=== PATIENT | female | born 1990 | race African-American/Black ===

== ENCOUNTER 2021-09-10 10:40 | Emergency (ER) | payer MEDICAID ==
[~2021-09-10] VITALS: Ht 162.6 cm; Wt 50.0 kg
[2021-09-10] MEDS ORDERED: ONDANSETRON HCL 4MG/2ML INJ IV STA (11:27)
[2021-09-10] MEDS ORDERED: KETOROLAC 30MG/ML VIAL IV STA (11:27)
[2021-09-10] MEDS ORDERED: FAMOTIDINE 20MG/2ML VIAL IV STA (11:27)
[2021-09-10] MEDS ORDERED: SODIUM CHLORIDE 0.9% 1,000 ML IV ONE (11:30)
[2021-09-10 12:07] LABS: CLARITY URINE CLEAR (CLEAR); COLOR URINE YELLOW (YELLOW); KETONES URINE TRACE (NEGATIVE); LEUKOCYTE ESTERASE URINE TRACE (NEGATIVE); NITRITE URINE NEGATIVE (NEGATIVE); OCCULT BLOOD URINE TRACE (NEGATIVE); PROTEIN URINE NEGATIVE (NEGATIVE); SPECIFIC GRAVITY URINE 1.023 (1.005-1.030); UROBILINOGEN URINE 0.2 E.U./dL (0.2-1.0)
[2021-09-10 12:22] LABS: BASOPHILS % 0.4 % (0.0-2.0); EOSINOPHILS % 0.1 % (0.0-5.0); HEMATOCRIT. 38.1 % (36.0-48.0); HEMOGLOBIN. 12.7 g/dL (12.0-16.0); LYMPHOCYTES % 28.3 % (20.0-50.0); MEAN CORPUSCULAR HEMOGLOBIN 30.2 pg (28.0-32.0); MEAN CORPUSCULAR VOLUME 90.8 fL (81.0-99.0); MONOCYTES % 3.4 % (2.0-8.0); NEUTROPHILS % 67.8 % (40.0-76.0); PLATELET 193 x1000/uL (130-400); RED CELL DISTRIBUTION WIDTH 15.7 % (11.6-14.6)
[2021-09-10 12:22] LABS: *AMPHETAMINES SCREEN URINE NEGATIVE (NEGATIVE); *BARBITURATES SCREEN URINE NEGATIVE (NEGATIVE)
[2021-09-10 12:23] LABS: *BENZODIAZEPINES SCREEN URINE NEGATIVE (NEGATIVE); *COCAINE SCREEN URINE NEGATIVE (NEGATIVE); CANNABINOID URINE SCREEN NEGATIVE (NEGATIVE); METHADONE URINE SCREEN NEGATIVE (NEGATIVE); PHENCYCLIDINE URINE SCREEN NEGATIVE (NEGATIVE)
[2021-09-10 12:25] LABS: OPIATES URINE SCREEN NEGATIVE (NEGATIVE)
[2021-09-10 12:27] LABS: CHLORIDE 108 mEq/L (98-107)
[2021-09-10 12:31] LABS: ETHANOL BLOOD < 10 mg/dL
[2021-09-10 12:35] LABS: PROTHROMBIN TIME 10.9 sec (9.6-11.0)
[2021-09-10 12:42] LABS: HCG SCREEN NEGATIVE
[2021-09-10] MEDS ORDERED: T3 PO (16:29)
[2021-09-10] MEDS ORDERED: NAPR-681 PO (16:29)
[2021-09-10 17:10] VITALS: BP 121/89
== END 2021-09-10 17:12 | disposition home or self-care (01) ==
LOC: ER 10:40
DX: R10.13 Epigastric pain (principal); M25.522 Pain in left elbow; M25.532 Pain in left wrist; M25.512 Pain in left shoulder
CPT/HCPCS: 36415; 71045; 73030; 73080; 73110; 76700; 80053; 80305; 80320; 81003; 81025; 83690; 84703; 85025; 85610; 96361; 96374; 96375; 99285; J1885; J2405; J3490; J7030; G0480